=== PATIENT | female | born 1990 | race Caucasian/White ===

== ENCOUNTER 2021-02-12 13:11 | Outpatient (CLI) | payer OTHER ==
[2021-02-12] MEDS ORDERED: OMNIPAQUE 300 MG/ML, 10ML VIAL ONE (14:00)
== END 2021-02-12 23:59 | disposition home or self-care (01) ==
LOC: RAD 13:11
PROVIDERS: ATTEND Obstetrics & Gynecology
DX: E28.2 Polycystic ovarian syndrome (principal); N92.6 Irregular menstruation, unspecified
CPT/HCPCS: 58340; 74740; Q9967